=== PATIENT | female | born 1945 | race Caucasian/White ===

== ENCOUNTER 2016-12-04 20:45 | Inpatient (IN) | payer OTHER, BC ==
[~2016-12-04] VITALS: Ht 162.6 cm; Wt 98.9 kg
--- NOTE | ~2016-12-04 | S ---
[facility] [place] [address] [place] [address] SURGICAL PATH RPT PROCEDURE Name: DELMA VARGAS Room #: 427-P ADM IN M.R.#: [id number] Admission: 12/05/16 Date of : 47 Discharge: Report #: [id number] Path Case #: [id number] PATHOLOGY REPORT COLLECTION DATE: 12/05/2016 RECEIVED DATE: 12/05/2016 SUBMITTING PHYS: Dr. Dov Inman OTHER PHYS: Dr. Indio Nunez SPECIMEN(S) RECEIVED: A.Bx of gastritis * * * * * * * * * * * * FINAL DIAGNOSIS: Biopsy gastritis: - Moderate reactive gastropathy. - Negative for intestinal metaplasia or atrophy. - Negative for Helicobacter pylori. COMMENT: The Helicobacter pylori immunohistochemical stain performed on block A1 - negative. PATHOLOGIST: Ligia Enriquez M.D. REPORT ELECTRONICALLY SIGNED BY: Ligia Enriquez M.D. DATE/TIME: 12/09/2016 15:47 * * * * * * * * * * * * GROSS PATHOLOGY: Received in formalin labeled "Delma Vargas, biopsy of gastritis," are 4 segments of harding soft tissue measuring 1.0 x 0.8 x 0.4 cm in aggregate dimensions and ranging from 0.3 to 1.0 cm in maximum dimension. The specimen is submitted entirely in cassette A1. (KAH; 12/08/2016) CLINICAL HISTORY: None provided INITIAL CPT CODE(S): A; 52916, 76115 Professional services performed by [facility] at [facility] [address], [place] [address] [facility] [address] [place] [address] SURGICAL PATH RPT PROCEDURE Name: DELMA VARGAS Room #: 427-P ADM IN M.R.#: [id number] Admission: 12/05/16 Date of : 47 Discharge: Report #: [id number] Path Case #: [id number] Technical [facility] performed by [facility] at [address] [place] [address], [facility] [address] [address]. [facility] [address] [address] PHONE: [phone] DIRECTOR: Júnior Ortiz M.D. * * * END OF REPORT * * *
--- NOTE | ~2016-12-04 | EKG ---
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 : 1945 Requested By: Paige Rand Order Number: [id number] MD: Jeffrey Moscoso Measurements Intervals Brady Rate: 61 P: 41 FL: 149 QRS: -26 QRSD: 94 T: -1 QT: 448 QTc: 452 Interpretive Statements Sinus rhythm Abnormal R-wave progression, late transition Left ventricular hypertrophy Borderline T abnormalities, diffuse leads Baseline wander in lead(s) V1 Compared to ECG 01/27/2015 06:47:53 Atrial premature complex(es) no longer present Electronically Signed On 12-05-2016 8:09:55 CDT by Jeffrey Moscoso [email or web address] <ELECTRONICALLY SIGNED> By: Jeffrey Moscoso MD, [facility] 12/05/16808 47 47 Jeffrey Moscoso MD, [facility] /EPI
--- NOTE | ~2016-12-04 | P ---
[facility] [place] [address] [address] [place] [address] PROCEDURE REPORT Name: OSCAR BOLAND Room #: 427-P [facility]#: [id number] Admission: 12/05/16 Attend Phys: Indio Randolph MD Discharge: Date of : 47 Report #: [id number] THIS REPORT FOR: //name// CC: Indio Nunez MD BRIEF HISTORY: The patient is a 71-year-old woman with complaints of severe abdominal pain, which started last evening. She has also had some problems with intermittent dysphagia. She had a recent video swallow, which was negative. She was to see Dr. Avery Ruff as outpatient a week for consultation regarding her dysphagia. She presented to [facility] last evening with severe abdominal pain after eating her meal. PREOPERATIVE DIAGNOSIS: Severe abdominal pain. POSTOPERATIVE DIAGNOSES: 1. Moderately severe diffuse erythematous gastritis. 2. Retained material in the stomach, suggestive gastroparesis. 3. Small hiatus hernia. 4. Moderate Schatzki ring, GE junction. MEDICATIONS: Deep sedation with propofol per anesthesia. SPECIMEN: Biopsies of gastritis. ESTIMATED BLOOD LOSS: 3 mL. PROCEDURE: EGD with biopsy. FINDINGS: Prior to propofol sedation, procedure of upper endoscopy was discussed with the patient as well as potential risks and its complications. She indicates she understands and desires to proceed. DESCRIPTION OF PROCEDURE: With the patient in left lateral decubitus position, the Tangleri video endoscope was inserted in the cervical esophagus under direct vision without difficulty. Examination of this organ through its entire length revealed normal esophageal mucosa down the squamocolumnar junction. Squamocolumnar junction was inspected and noted to be within normal limits without evidence of esophagitis, Worley esophagus, mass or lesions. However, she was noted to have a moderate Schatzki ring at that level. The scope passed easily through the ring. The scope passed into a small hiatus hernia. The mucosal hernia was normal. Scope was advanced in the stomach, which was examined on end view as well as retroflexed views. She was noted to have retained solid material within the stomach. She is also noted to have a moderate amount of erythematous gastritis, most in the antrum. No ulcers were seen. No bleeding lesions were seen. Upon retroflexion, food was seen, but no [address] [address] PROCEDURE REPORT Name: KRYSTIANOSCAR Марина Room #: 427-P [facility] You#: [id number] Admission: 12/05/16 Attend Phys: Indio Randolph MD Discharge: Date of : 47 Report #: [id number] mass or lesions were seen within the limitations of the prep. The pylorus, duodenal bulb and postbulbar sweep were all inspected and noted to be within normal limits. The duodenal papilla was identified. There was clear yellow bile seen. At that point, the scope was slowly withdrawn and careful circumferential views confirmed the above findings. The patient tolerated the procedure well. Biopsies obtained of the gastritis. DISPOSITION: The patient presented with severe epigastric pain. Endoscopy does reveal retained material in the stomach. She may have gastroparesis, but I doubt that fully explains her symptoms at this point in time, especially with severe pain. She has had some dysphagia and she is found to have a ring, which was dilated. As far as her severe abdominal pain, I think we need to be concerned about the possibility of cholelithiasis, especially since her white count has jumped up to 15,000 today. I would recommend surgical consultation for further evaluation. In the meantime, continue PPI. Dilate as needed due to symptoms of dysphagia. <ELECTRONICALLY SIGNED> By: Dov Inman MD 12/06/16 1228 1329 [id number] Dov Inman MD /nt
--- NOTE | ~2016-12-04 | EKG ---
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 : 1945 Requested By: Carter Greenberg Order Number: [id number] MD: Celestino Leger Measurements Intervals Griffin Rate: 90 P: 47 MN: 142 QRS: -27 QRSD: 89 T: 147 QT: 384 QTc: 470 Interpretive Statements Sinus rhythm LVH with secondary repolarization abnormality Compared to ECG 12/04/2016 20:48:13 Early repolarization now present T-wave abnormality no longer present Electronically Signed On 12-07-2016 22:42:21 CDT by Celestino Leger [email or web address] <ELECTRONICALLY SIGNED> By: Celestino Leger MD 12/07/16 2242 1142 1142 Celestino Leger MD /REBECCA
--- NOTE | ~2016-12-04 | HC ---
[facility] [place] [address] [address] [place] [address] CONSULTATION Name: OSCAR BOLAND Room #: 427-P [facility]#: [id number] Admission: 12/05/16 Attend Phys: Indio Randolph MD Discharge: Date of : 47 Report #: [id number] THIS REPORT FOR: //name// CC: Indio Nunez DATE OF SERVICE: 12/06/2016 ATTENDING PHYSICIAN: Dr. Randolph. REASON FOR CONSULTATION: Right upper quadrant abdominal pain. HISTORY OF PRESENT ILLNESS: This is a 71-year-old female patient who was admitted to [facility] on 12/05/2016 with severe epigastric abdominal pain. She was seen in the [place] [facility] with these complaints as well as nausea and vomiting occurring postprandially. She has also had some difficulty with dysphagia. She was evaluated by GI and they elected to perform an EGD. This showed a Schatzki's ring, which was dilated. Thereafter, the patient developed worsening right upper quadrant abdominal pain. An abdominal ultrasound revealed multiple layering gallstones and sludge with no evidence for acute cholecystitis or biliary obstruction. The patient's CT scan showed no evidence for pancreatitis and again, same gallstones were seen within the gallbladder without evidence for acute cholecystitis. I have been asked to see the patient for her right upper quadrant abdominal pain. On my questioning, she appears quite uncomfortable, complaining of constant right upper quadrant abdominal pain. She reports fever, but no chills and denies any jaundice. She also denies nausea or vomiting at this time. Her laboratory studies show an increase in her white blood cell count yesterday before she underwent EGD; the prior day, her white blood cell count was normal. PAST MEDICAL HISTORY: Significant for hypertension, hyperlipidemia, gastroesophageal reflux disease, depression, anxiety, previous TIA and irritable bowel syndrome. PAST SURGICAL HISTORY: Hysterectomy. MEDICATIONS: Please see the hospital chart for dosing details). These include Prozac, Ambien, Cozaar, omeprazole, Vicodin, Requip, hydroxyzine, clonazepam, vitamin B complex, vitamin D3, glucosamine, CoQ10, and vitamin C. ALLERGIES: No known drug allergies. FAMILY HISTORY: Reviewed and noncontributory to this hospitalization. One of her grandmothers did have diabetes mellitus. SOCIAL HISTORY: The patient drinks alcohol socially. She quit smoking tobacco [address] [address] CONSULTATION Name: OSCAR BOLAND Room #: 427-P [facility]#: [id number] Admission: 12/05/16 Attend Phys: Indio Randolph MD Discharge: Date of : 47 Report #: [id number] 6 years ago and denies any use of illicit drugs. She is , but not accompanied by her at the present time. REVIEW OF SYSTEMS: As per history of present illness. In addition, GENERAL: The patient reports no unintentional weight loss. Denies chills. Reports fever. HEENT: Denies changes in taste, vision, hearing, or smell. Reports poor appetite. NECK: Denies masses. RESPIRATORY: Denies shortness of breath, asthma or COPD. CARDIOVASCULAR: Denies chest pain or palpitations. GASTROINTESTINAL: As per history of present illness. Also, denies any bright red blood per rectum. Has undergone a colonoscopy in the past, approximately 4 years ago. GENITOURINARY: Denies dysuria, urgency, increased urinary frequency or hematuria. Denies dark colored urine. NEUROLOGIC: Denies headaches, numbness or tingling. PSYCHIATRIC: Denies suicidal ideations; has a history of depression and anxiety. ENDOCRINE: Denies polydipsia, polyuria, heat or cold intolerance. HEMATOLOGIC: Denies easy bleeding or bruising. All other review of systems is negative. PHYSICAL EXAMINATION: VITAL SIGNS: Temperature 98.3, blood pressure 169/73, pulse 70 and respirations 18. GENERAL: This is a mildly obese 71-year-old female patient who appears uncomfortable. HEENT: Atraumatic, normocephalic with moist mucosal membranes. Oropharynx is clear. She has no scleral icterus. NECK: Supple. No appreciable lymphadenopathy. Trachea is midline. CHEST: Clear bilaterally. No crackles or wheezes. CARDIOVASCULAR: Regular rate and rhythm, S1, S2. ABDOMEN: Soft, but tender to palpation, greatest in the right upper quadrant. She has positive Riley sign and a faintly palpable mass in the right upper quadrant. No rebound or guarding and no appreciable hernias. Hysterectomy scar is well healed. GENITOURINARY: Normal external female genitalia. EXTREMITIES: No clubbing, cyanosis or edema. NEUROLOGIC: Cranial nerves 2-12 grossly intact. PSYCHIATRIC: Normal mood and affect. SKIN AND INTEGUMENTARY: No acute inflammatory changes, rashes, lesions, or jaundice is present. LABORATORY DATA: CBC shows a white blood cell count 15.1, hemoglobin 13.4, [address] [address] CONSULTATION Name: OSCAR BOLAND Room #: 427-P [facility]#: [id number] Admission: 12/05/16 Attend Phys: Indio Randolph MD Discharge: Date of : 47 Report #: [id number] hematocrit 40.00 and platelets 233 yesterday. A CBC has not been withdrawn for today. Electrolytes show sodium 135, potassium 4.0, chloride 101, CO2 of 27, BUN 7, creatinine 0.7, and glucose 132. Her liver function tests are within normal limits. RADIOLOGIC STUDIES: Ultrasound and CT findings are as noted above. IMPRESSION AND PLAN: This is a 71-year-old female patient with constant right upper quadrant abdominal pain and fever, worsening since she underwent an EGD with dilation of Schatzki's ring yesterday. She has gallstones, but no evidence for acute cholecystitis on the imaging studies. To better rule acute cholecystitis out, the patient would benefit from a PIPIDA scan. An ejection fraction is not necessary as the patient is requiring scheduled IV narcotic pain medication. We discussed the pathophysiology and natural history of biliary disease as well as the treatment alternatives and surgical options. Further recommendations will be made pending results of the PIPIDA scan. I have also ordered a CBC and comprehensive metabolic profile to be drawn today. I sincerely appreciate the opportunity to participate in the care of this patient and will leave further recommendations and orders in the electronic medical record as appropriate. <ELECTRONICALLY SIGNED> By: Donovan Treadwell MD, FACS 12/07/16 9726 1016 [id number] Donovan Treadwell MD, FACS /nt
--- NOTE | ~2016-12-04 | 2DMMODE ---
[facility] [address] [place] [address] 2 D/M-MODE ECHOCARDIOGRAM Name: BOLANDOSCAR Room #: 427-P [facility] IN ..#: [id number] Admission: 12/05/16 Attend Phys: Ailyn Huber Discharge: Date of : 47 Date of Service: 12/08/16 1223 Report #: [id number] THIS REPORT FOR: //name// APPROVED REPORT Study performed: 12/08/2016 11:14:02 EXAM: Comprehensive 2D, Doppler, and color-flow Echocardiogram Patient Location: Bedside Room #: [facility] Blood Pressure: 137/61 mmHg HR: 61 bpm Other Information Study Quality: Technically Limited Indications Hypertension/HDD 2D Dimensions LVEF(%): 62.54 (>50%) IVSd: 14.01 (7-11mm) LVOT Diam: 20.11 (18-24mm) LVDd: 45.35 mm PWd: 14.35 (7-11mm) Ascending Ao: 32.46 (22-36mm) LVDs: 30.09 (25-40mm) Aortic Root: 30.24 mm IVC: 22.00 mm Miller's LVEF: 62.54 % Aortic Valve AoV Peak Brody.: 1.54 m/s AO Peak Gr.: 9.49 mmHg LVOT Max P.78 mmHg LVOT Max V: 1.30 m/s IDRIS Vmax: 2.68 cm2 Mitral Valve E/A Ratio: 1.2 MV Decel. Time: 186.12 ms MV E Max Brody.: 0.97 m/s MV A Brody.: 0.83 m/s MV PHT: 53.97 ms IVRT: 92.27 ms [facility] [address] [place] [address] 2 D/M-MODE ECHOCARDIOGRAM Name: OSCAR BOLAND Марина Room #: 427-P [facility] IN [facility]#: [id number] Admission: 12/05/16 Attend Phys: Ailyn Huber Discharge: Date of : 47 Date of Service: 12/08/16 1223 Report #: [id number] Pulmonary Valve PV Peak Brody.: 1.11 m/s PV Peak Gr.: 4.97 mmHg Pulmonary Vein P Vein S: 67.1 m/s P Vein A: 37.05 m/s P Vein D: 38.2 m/s P Vein A Dur.: 110.7 msec Tricuspid Valve TR Peak Brody.: 3.13 m/s RAP Estimate: 10.00 mmHg TR Peak Gr.: 39.14 mmHg Left Ventricle The left ventricle is normal size. There is normal LV segmental wall motion. Mild concentric left ventricular hypertrophy. The left ventricular systolic function is normal. The left ventricular ejection fraction is within the normal range. LVEF is 60%. Grade II - pseudonormal filling dynamics. Right Ventricle The right ventricle appears normal size. The right ventricular systolic function appears normal. Atria The left atrium size is normal. The right atrium size is normal. Aortic Valve The aortic valve is normal in structure. No aortic regurgitation is present. There is no aortic valvular stenosis. Mitral Valve The mitral valve is normal in structure. Trace mitral regurgitation. No evidence of mitral valve stenosis. Tricuspid Valve The tricuspid valve is normal in structure. Mild tricuspid regurgitation. Pulmonic Valve The pulmonary valve is normal in structure. Trace to mild pulmonic regurgitation. Great Vessels The aortic root is normal in size. IVC is dilated and collapses >50% with inspiration. [facility] [address] [place] [address] 2 D/M-MODE ECHOCARDIOGRAM Name: OSCAR BOLAND Room #: 427-P [facility] IN .R.#: [id number] Admission: 12/05/16 Attend Phys: Ailyn Huber Discharge: Date of : 47 Date of Service: 12/08/16 1223 Report #: [id number] Pericardium There is no pericardial effusion. <Conclusion> The left ventricle is normal size. Mild concentric left ventricular hypertrophy. The left ventricular systolic function is normal. Grade II - pseudonormal filling dynamics. The right ventricle appears normal size. The left atrium size is normal. The aortic valve is normal in structure. Trace mitral regurgitation. Mild tricuspid regurgitation. <ELECTRONICALLY SIGNED> By: Merrill Deshpande MD 12/08/16 1223 22 22 Merrill Deshpande MD /INF
--- NOTE | ~2016-12-04 | HC ---
[facility] [place] [address] [place] [address] CONSULTATION Name: OSCAR BOLAND Room #: 427-P [facility]..#: [id number] Admission: 12/05/16 Attend Phys: Indio Randolph MD Discharge: Date of : 47 Report #: [id number] THIS REPORT FOR: //name// CC: Indio Nunez CARDIOLOGY CONSULTATION REASON FOR CONSULTATION: Intraoperative arrhythmia. HISTORY OF PRESENT ILLNESS: The patient is a 71-year-old with no known heart history, who was found to have acute colitis and today underwent drainage of her gallbladder, apparently they cannot remove it due to how inflamed it was. During the procedure, she had some brief runs of wide complex tachycardia lasting a few beats. I reviewed several of these episodes that they were able to record and it shows that she had frequent sinus rhythm with PACs and then some bursts of what looks like some atrial tachycardia with aberration. I saw her in the postoperative setting, she was without chest pain and she was denying any shortness of breath. She denies history of PND or orthopnea. REVIEW OF SYSTEMS: Unable to really obtain due to postop status and sedation. PAST MEDICAL HISTORY: GERD, hypertension, depression, TIA, irritable bowel, hyperlipidemia and anxiety. PAST SURGICAL HISTORY: Hysterectomy. ALLERGIES: PROCAINE. MEDICATIONS: Include Vitamin C, Coenzyme Q10, glucosamine, vitamin D3, hydroxyzine, clonazepam, vitamin B, Requip, Vicodin, Protonix, Prozac and losartan. SOCIAL HISTORY: She quit about 6 years ago and had a 50-pack smoking history. FAMILY HISTORY: Significant for father of lung cancer and some heart disease in her grandparents. PHYSICAL EXAMINATION: VITAL SIGNS: From this morning include temperature of 37.4, pulse 74, respiration 19, blood pressure 144/53, and sats 96%. She had a maximum temperature of 38.9, and while I was evaluating her, her heart rate was in the 80s, in sinus rhythm and her sats were 95% on 2 liters nasal cannula. GENERAL: She was somewhat lethargic and she was just out of surgery. HEENT: Sclerae anicteric. NECK: Supple, with no thyromegaly. HEART: Regular rate and rhythm with no murmurs, rubs, or gallops. [facility] [address] [place] [address] CONSULTATION Name: OSCAR BOLAND Room #: 427-[facility]#: [id number] Admission: 12/05/16 Attend Phys: Indio Randolph MD Discharge: Date of : 47 Report #: [id number] LUNGS: She does not have elevated jugular venous pressure. ABDOMEN: Nontender and I did note the drains that were in place. EXTREMITIES: There was no clubbing, cyanosis or edema. NEUROLOGIC: Cranial nerves were grossly intact. LABORATORY DATA: White count is 24, hemoglobin 12, and platelets are 185. Coags: INR 1.0. Chemistry: Sodium was 135, potassium 3.5, BUN 8, and creatinine 0.6. Troponins on admission were normal. Her proBNP on admission was 59. Her 12-lead EKG on admission showed sinus rhythm with no ischemic changes. Her EKG in the postoperative setting today demonstrate normal sinus rhythm with normal intervals and no ischemic changes. IMPRESSION: In summary, the patient is a 71-year-old with acute colitis, status post drain placement to had some brief runs of what appears to be atrial tachycardia in the postoperative setting. I have recommended that we started her on Toprol orally for heart rate control and hopefully to suppress some of these arrhythmias. I would also like to obtain an echocardiogram in the morning to further evaluate things. We will continue to follow. By: 1245 0104 Celestino Leger MD /nt
--- NOTE | ~2016-12-04 | O ---
[facility] [place] [address] [place] [address] OPERATIVE REPORT Name: OSCAR BOLAND Room #: 427-P [facility]#: [id number] Admission: 12/05/16 Attend Phys: Indio Randolph MD Discharge: Date of : 47 Report #: [id number] THIS REPORT FOR: //name// CC: Indio Nunez DATE OF SERVICE: 12/07/2016 SURGEON: Donovan Treadwell MD LANDSCAPE PAINTER: None. PREOPERATIVE DIAGNOSIS: Acute cholecystitis. POSTOPERATIVE DIAGNOSES: 1. Acute gangrenous cholecystitis. 2. Incarcerated incisional ventral hernia. PROCEDURES: 1. Diagnostic laparoscopy. 2. Laparoscopic placement of cholecystostomy tube (pigtail drain). 3. Laparoscopic primary repair of incarcerated incisional ventral hernia. ANESTHESIA: General endotracheal anesthesia and local anesthetic. ESTIMATED BLOOD LOSS: 5 mL. SPECIMEN: None. SPECIMENS: None appreciated. INDICATION FOR PROCEDURE: This is a 71-year-old female patient who has had difficulty with epigastric abdominal pain since this past , 3 days ago. After her admission through the emergency room, she underwent an ultrasound and CT scan which showed sludge/small gallstones with no evidence for acute cholecystitis (no gallbladder wall thickening, no pericholecystic fluid, etc.). The patient was seen by GI and was further evaluated with an EGD, which revealed a Schatzki's ring. The patient underwent dilatation. Food was seen in the patient's stomach as well. After the procedure, the patient's pain shifted to the right upper quadrant. It has been constant and worsening. Her white blood cell count has increased and she has mildly elevated liver function tests that were normal the previous day. The patient underwent a PIPIDA scan, which showed acute cholecystitis. There was no filling of the gallbladder, despite the patient being given morphine. She has continued worsening of her leukocytosis. Her pain has worsened today as well. The patient presents today for laparoscopic cholecystectomy with cholangiogram, possible cholecystostomy, [address] [address] OPERATIVE REPORT Name: OSCAR BOLAND [id number] Admission: 12/05/16 Attend Phys: Indio Randolph MD Discharge: Date of : 47 Report #: [id number] possible open. OPERATIVE FINDINGS: Upon entrance into the abdominal cavity, omental fat was plastered to the liver. Fibrinous exudate was seen at the junction between the liver and gallbladder. With the acute inflammatory changes, identification of structures was difficult. The dome of the gallbladder was able to be visualized and a small amount of the gallbladder was exposed, which revealed gangrenous changes. Decision was made to place a cholecystostomy tube. After placement of the tube, there was initially purulent drainage, which became more bilious. The patient was also seen to have an incarcerated incisional ventral hernia at the umbilicus from her previous hysterectomy. The incarcerated hernia contained a small amount of omentum as well as abdominal wall and preperitoneal fat. There was no bowel involvement. The incarcerated tissue was viable. The hernia repair was amenable to a sfrhud-cl-iypej primary repair with suture. No other significant intra-abdominal pathology was identified. At the conclusion of the operation, sponge, needle, and instrument counts were correct. DESCRIPTION OF PROCEDURE IN DETAIL: After the benefits and risks of the procedure were explained to the patient, which include but not limited to risks of bleeding, infection, possible need for conversion to an open procedure and possibility for cholecystostomy placement as well as risks of DVT, pulmonary embolus, postoperative pain, postoperative expectations, informed consent was obtained. The patient was identified in the preoperative holding area. She has been placed on scheduled Zosyn. The patient was taken to the operating room and she was placed in the supine position. SCDs were placed on the patient's bilateral lower extremities and pneumatic compression was initiated. The patient was then given IV sedation and she intubated without incident. A timeout was performed to identify the patient and procedure after prepping and draping her abdomen. Local anesthetic was infiltrated into the skin and subcutaneous tissue infraumbilically where a curvilinear incision was made with a 15 blade scalpel. The 11 mm Visiport was then placed intraperitoneally with a 0-degree angled laparoscope. Pneumoperitoneum was achieved with insufflation of carbon dioxide to 15 mmHg. A 30-degree angled laparoscope was then inserted. The patient was placed in the reverse Trendelenburg position, rotated to her left. A subxiphoid 5 mm and right subcostal 5 mm ports times 2 were placed under direct visualization after local anesthetic was infiltrated into the skin and subcutaneous tissue and appropriately sized incisions were made. Operative findings are as noted above. The omentum covering the gallbladder was tightly adherent in an acute fashion ending in an acute inflammatory fashion to the gallbladder. The omentum was lifted away revealing patchy areas of gangrene of the gallbladder. The surrounding tissue was acutely inflamed as well. Decision was made to place a cholecystostomy tube. The cholecystostomy was opened on the back table and [facility] [address] [place] [address] OPERATIVE REPORT Name: OSCAR BOLAND [id number] Admission: 12/05/16 Attend Phys: Indio Randolph MD Discharge: Date of : 47 Report #: [id number] prepared. Local anesthetic was infiltrated into the skin, subcutaneous tissue and the right subcostal area where a small skin jacquie was made. Sharp trocar for the cholecystostomy tube was advanced through the skin under direct visualization and directly into the gallbladder. The cholecystostomy tube was then advanced over the trocar until the forming suture was advanced beyond the gallbladder wall. The trocar was then withdrawn. The pigtail catheter was formed and the suture was locked down. A long catheter and 3-way stopcock were then connected and the gallbladder was drained with a 60 mL syringe, nearly 120 mL was withdrawn. The drain was connected to a bag. The abdominal cavity was then explored with findings as noted above. The incarcerated content within the hernia was reduced. A hrhxbx-lq-teevf 0 PDS suture was then placed through a separate location, cephalad to the port under direct visualization. The suture was then tied under direct visualization. The port was removed and an additional ntxzsh-yx-uhnlr 0 PDS suture was placed under direct visualization. Both sutures were placed with the Bradly-Abiola laparoscopic fascial closure device. This suture was tagged and the port was replaced. The abdominal cavity was then reentered. A 15 Greenlandic drain was then advanced into the abdominal cavity and brought out through the right lateral port site. The drain was secured to the skin with a 2-0 nylon suture. Intra-abdominally, the drain was positioned such that it would drain near the gallbladder as well as in the right perihepatic space. The 11 mm port was then removed and the suture was tied under direct visualization to ensure no incorporation of intra-abdominal content with the closure. The abdominal cavity was desufflated to the remaining ports. The ports were then removed. Interrupted subcuticular 4-0 Monocryl sutures and Dermabond were used to close the skin incisions. The cholecystostomy tube was secured to the skin with a StatLock type dressing. The patient tolerated the procedure well. She was awakened, extubated, and taken to the recovery room in stable condition with no apparent intraoperative complications. <ELECTRONICALLY SIGNED> By: Donovan Treadwell MD, FACS 12/07/16 [id number] Donovan Treadwell MD, FACS /nt
--- NOTE | ~2016-12-04 | H ---
[facility] [place] [place] [address] HISTORY AND PHYSICAL Name: OSCAR BOLAND Room #: 427-P [facility]..#: [id number] Admission: 12/05/16 Attend Phys: Indio Randolph MD Discharge: Date of : 47 Report #: [id number] THIS REPORT FOR: //name// CC: Indio Nunez DATE OF ADMISSION: 12/05/2016 ATTENDING PHYSICIAN: Dr. Randolph PRIMARY CARE PHYSICIAN: Rey Nunez M.D. in [place] CHIEF COMPLAINT: Chest pain and abdominal pain. HISTORY OF PRESENT ILLNESS: The patient is a 71-year-old female, who was feeling fine throughout the day yesterday. She ate some baked cod for dinner and shortly thereafter develops some burning type pain in her epigastric area that radiated up into her chest and through to her back. She has never had this type of pain before. She denies any recent exertional chest pain. She did have nausea that started vomiting multiple times at home. Her pain persisted and she came into the ER to be evaluated. She did try ____ and baby aspirin at home without relief. She does have a history of GERD that has never caused pain. She was given nitroglycerin, Protonix, morphine and Dilaudid and Reglan all in the ER, but she continued to have some vomiting and has been admitted for further evaluation. She is still experiencing the same pain. It really has never gone away since it started. She is having hard time lying flat or get uncomfortable because the pain is keeping awake. She denies any history of coronary artery disease. PAST MEDICAL HISTORY: GERD, hypertension, depression, TIA, IBS, hyperlipidemia, anxiety. PAST SURGICAL HISTORY: Hysterectomy. ALLERGIES: PROCAINE. HOME MEDICATIONS: Prozac 20 mg daily, Ambien at bedtime, losartan 100 mg daily, Protonix 20 mg daily, Vicodin 10/300 one tablet daily, Requip at bedtime, hydroxyzine 25 mg at bedtime. clonazepam 1 mg at bedtime, vitamin B daily, vitamin D3 daily, glucosamine daily, Coenzyme Q10 daily, and vitamin C daily. SOCIAL HISTORY: The patient is an ex-smoker having quit 6 years ago after [id number] history of smoking. She then used e-cigarettes. She denies any alcohol use. She lives at home with her spouse. She is retired. FAMILY HISTORY: Her father of lung cancer in his 80s. There was heart disease in multiple grandparents. [address] [address] HISTORY AND PHYSICAL Name: OSCAR BOLAND Room #: 427-P [facility]..#: [id number] Admission: 12/05/16 Attend Phys: Indio Randolph MD Discharge: Date of : 47 Report #: [id number] REVIEW OF SYSTEMS: Twelve point review of systems was reviewed with the patient, otherwise negative unless stated in the HPI. PHYSICAL EXAMINATION: GENERAL: The patient is an alert female in no acute distress. VITAL SIGNS: Temperature is 36.6, heart rate 67, respirations 16, blood pressure is 184/84, oxygen 100% on room air. HEENT: PERRLA. Sclerae is nonicteric. Oral mucosa is pink and moist. NECK: Supple, no JVD noted. CARDIOVASCULAR: Normal S1, S2. No murmurs, rubs or gallops. RESPIRATORY: Breath sounds are clear bilaterally. No wheezing or rhonchi. Breathing is nonlabored. ABDOMEN: Obese, but soft. She does have significant epigastric tenderness. Bowel sounds are positive. There is no guarding or rigidity. VASCULAR: No edema noted. Pedal pulses are 2+. NEUROLOGIC: The patient is alert and oriented x 3. Speech is clear. She is moving all extremities equally. No focal neuro deficits noted. PSYCHIATRIC: The patient is somewhat anxious, but cooperative. LABORATORY DATA AND DIAGNOSTICS: WBC 10.4, hemoglobin 13.4, platelets are 231, sodium 136, potassium 3.7, BUN 9, creatinine 0.6, glucose 111. LFTs are within normal limits. Cardiac enzymes are negative and likely is 109. INR is 1.0. Ultrasound of the abdomen showed multiple gallstones and gallbladder wall extending down in the gallbladder neck region. There are no current findings for acute cholecystitis or biliary obstruction. There is a large cyst involving the right kidney lower pole measuring [address] of the abdomen and pelvis shows multiple small cysts in the pancreatic head region which have a more chronic appearance. There is moderate material flowing the stomach. There is no acute abnormality. There is few faint gallstones within the gallbladder, but no signs of acute cholecystitis or obstruction. Liver showed moderate steatosis and there is moderate stool in the proximal colon. Chest x-ray showed mild increased bibasilar density suggesting atelectasis versus pneumonitis. ASSESSMENT AND PLAN: 1. Epigastric pain. Her pain does persist, this may be gallbladder versus gastritis, as the pain is reproducible. She did have gallstones on her CT and ultrasound. We will try GI cocktail and continue with PPI and antiemetics. We will consult GI for further recommendations. She has never had an EGD done. There is also moderate material within the stomach that may be gastroparesis. She may need to be evaluated with the gastric emptying study as well. We will await GI recommendations first. This may also be some atypical chest pain. We will check serial cardiac enzymes, the first of which was negative. She did take an aspirin today at home. 2. Hypertension. Blood pressure is stable, continue home medications and monitor. [facility] [address] [place] [address] HISTORY AND PHYSICAL Name: OSCAR BOLAND Марина Room #: 427-P [facility].#: [id number] Admission: 12/05/16 Attend Phys: Indio Randolph MD Discharge: Date of : 47 Report #: [id number] 3. Anxiety. Resume home medications. 4. Deep vein thrombosis prophylaxis is SCDs. We will continue to follow the patient closely throughout the hospitalization and make changes based on clinical status. <ELECTRONICALLY SIGNED> By: MARLIN Day 12/08/16 0604 [id number] 1004 MARLIN Day /cassie
[~2016-12-04 20:45] MED LIST: AMBIEN CR12.5 MG; ASPIR 8181 MG; PROZAC20 MG; SIMVASTATIN40 MG; TYLENOL325 MG PO
[2016-12-04 20:46] VITALS: BP 184/84
[2016-12-04 21:36] LABS: ABSOLUTE NEUTROPHILS 7.3 thou/uL (1.4-8.2); BASOPHILS 0.3 % (0.0-2.0); HEMATOCRIT 39.1 % (37.0-47.0); HEMOGLOBIN 13.4 gm/dL (12.0-15.0); LYMPHOCYTES 20.2 % (24.0-44.0); MANUAL DIFF NO; MCH 35.9 pg (26.0-34.0); MCHC 34.3 g/dL (28.0-37.0); MCV 104.4 fL (80.0-100.0); MONOCYTES 6.4 % (1.0-8.0); PLATELET COUNT 231 thou/uL (150-400); POLYS 70.1 % (36.0-66.0); RBC 3.74 mil/uL (4.20-5.00); RDW 14.4 % (10.5-14.5); WBC 10.4 thou/uL (4.0-11.0)
[2016-12-04 21:48] LABS: ANION GAP 13 mmol/L (7-16); BUN 9 mg/dL (7-18); CALCIUM 8.6 mg/dL (8.5-10.1); CHLORIDE 101 mmol/L (98-107); CO2 22 mmol/L (21-32); CREATININE 0.6 mg/dL (0.6-1.0); GLUCOSE 111 mg/dL (74-106); POTASSIUM 3.7 mmol/L (3.5-5.1); SODIUM 136 mmol/L (136-145)
[2016-12-04 21:53] LABS: APTT 25.4 Seconds (24.5-32.8); PROTIME 10.4 Seconds (9.3-11.4)
[2016-12-04 21:58] LABS: ALBUMIN 3.6 g/dL (3.4-5.0); ALKALINE PHOSPHATASE 62 U/L (46-116); NT-PRO BRAIN NAT PEPTIDE 59 pg/mL (<300); SGOT 30 U/L (15-37); SGPT 27 U/L (30-65); TOTAL BILIRUBIN 0.5 mg/dL (<0.1-1.0); TOTAL PROTEIN 7.6 g/dL (6.4-8.2); TROPONIN-I < 0.04 ng/mL (<0.04-0.07)
[2016-12-05] MEDS ORDERED: COZAAR 50 MG TA50 M2 (00:02)
[2016-12-05] MEDS ORDERED: OMEPRAZOLE 20 M20 M1 PO (00:03)
[2016-12-05] MEDS ORDERED: VICODIN HP 10-1 EAC1 (00:12)
[2016-12-05] MEDS ORDERED: HYDROXYZINE HCL25 M1 (00:13)
[2016-12-05] MEDS ORDERED: REQUIP0.5 MG (00:13)
[2016-12-05] MEDS ORDERED: CLONAZEPAM 1 MG1 M1 (00:13)
[2016-12-05] MEDS ORDERED: VITAMIN D2000 UNIT PO (00:14)
[2016-12-05] MEDS ORDERED: VITAMIN B-12500 MCG PO (00:14)
[2016-12-05] MEDS ORDERED: STRESS B1 EAC1 (00:14)
[2016-12-05] MEDS ORDERED: VITAMINC500 PO (00:15)
[2016-12-05] MEDS ORDERED: GLUCOSAMINE HC500 MG (00:15)
[2016-12-05] MEDS ORDERED: CO Q-1010 MG (00:15)
[2016-12-05 01:13] VITALS: BP 160/66
[2016-12-05 04:07] VITALS: BP 164/72
[2016-12-05 05:14] LABS: HEMOGLOBIN 13.4 gm/dL (12.0-15.0); MCH 35.1 pg (26.0-34.0); MCHC 33.5 g/dL (28.0-37.0); MCV 104.7 fL (80.0-100.0); RBC 3.82 mil/uL (4.20-5.00); RDW 14.4 % (10.5-14.5); WBC 15.1 thou/uL (4.0-11.0)
[2016-12-05 05:26] LABS: ALBUMIN 3.8 g/dL (3.4-5.0); CALCIUM 8.4 mg/dL (8.5-10.1); CREATININE 0.7 mg/dL (0.6-1.0); TOTAL BILIRUBIN 0.7 mg/dL (<0.1-1.0); TOTAL PROTEIN 7.9 g/dL (6.4-8.2)
[2016-12-05 07:47] VITALS: BP 161/82
[2016-12-05 16:03] VITALS: BP 163/60
[2016-12-05 20:00] VITALS: BP 155/59
[2016-12-06 04:00] VITALS: BP 152/83
[2016-12-06 07:50] VITALS: BP 169/73
[2016-12-06 10:48] LABS: HEMATOCRIT 39.1 % (37.0-47.0); MCH 35.3 pg (26.0-34.0); MCHC 33.4 g/dL (28.0-37.0); MCV 105.7 fL (80.0-100.0); RBC 3.7 mil/uL (4.20-5.00); RDW 14.4 % (10.5-14.5); WBC 20.1 thou/uL (4.0-11.0)
[2016-12-06 11:01] LABS: ALBUMIN 3.4 g/dL (3.4-5.0); CALCIUM 8.6 mg/dL (8.5-10.1); CREATININE 0.6 mg/dL (0.6-1.0); POTASSIUM 3.5 mmol/L (3.5-5.1); TOTAL BILIRUBIN 1.5 mg/dL (<0.1-1.0); TOTAL PROTEIN 7.8 g/dL (6.4-8.2)
[2016-12-06 16:23] VITALS: BP 173/77
[2016-12-06 20:00] VITALS: BP 184/90
[2016-12-07] VITALS (9 sets, daily range): BP systolic 121–177; BP diastolic 53–91
[2016-12-07 05:11] LABS: HEMOGLOBIN 12.5 gm/dL (12.0-15.0); MCH 34.8 pg (26.0-34.0); MCHC 32.9 g/dL (28.0-37.0); MCV 105.6 fL (80.0-100.0); PLATELET COUNT 185 thou/uL (150-400); RDW 14.3 % (10.5-14.5); WBC 24.1 thou/uL (4.0-11.0)
[2016-12-07 05:14] LABS: MANUAL DIFF YES
[2016-12-07 07:25] LABS: ABSOLUTE NEUTROPHILS 17.8 thou/uL (1.4-8.2); MACROCYTES 1+; PLATELET ESTIMATE NORMAL; TOTAL CELL COUNT 100
[2016-12-08 04:00] VITALS: BP 105/55
[2016-12-08 06:23] LABS: HEMATOCRIT 35.5 % (37.0-47.0); HEMOGLOBIN 11.7 gm/dL (12.0-15.0); MCH 35.2 pg (26.0-34.0); MCV 106.6 fL (80.0-100.0); PLATELET COUNT 182 thou/uL (150-400); RBC 3.33 mil/uL (4.20-5.00); RDW 14.2 % (10.5-14.5); WBC 17.1 thou/uL (4.0-11.0)
[2016-12-08 07:08] LABS: MANUAL DIFF YES
[2016-12-08 07:17] LABS: ALBUMIN 2.4 g/dL (3.4-5.0); CREATININE 0.6 mg/dL (0.6-1.0); TOTAL BILIRUBIN 1.5 mg/dL (<0.1-1.0)
[2016-12-08 07:22] LABS: POTASSIUM 2.8 mmol/L (3.5-5.1)
[2016-12-08 08:16] VITALS: BP 130/61
[2016-12-08 08:40] LABS: ABSOLUTE NEUTROPHILS 14.2 thou/uL (1.4-8.2); MACROCYTES 2+; TOTAL CELL COUNT 100
[2016-12-08 15:33] VITALS: BP 128/57
[2016-12-08 20:00] VITALS: BP 152/62
[2016-12-09 04:30] VITALS: BP 149/58
[2016-12-09 05:41] LABS: CALCIUM 8.1 mg/dL (8.5-10.1); CREATININE 0.6 mg/dL (0.6-1.0); HEMATOCRIT 34.7 % (37.0-47.0); HEMOGLOBIN 11.6 gm/dL (12.0-15.0); MCH 35.3 pg (26.0-34.0); MCHC 33.3 g/dL (28.0-37.0); MCV 105.8 fL (80.0-100.0); RBC 3.28 mil/uL (4.20-5.00); RDW 14.4 % (10.5-14.5); WBC 12.7 thou/uL (4.0-11.0)
[2016-12-09 06:04] LABS: POTASSIUM 2.7 mmol/L (3.5-5.1)
[2016-12-09 07:16] VITALS: BP 139/57
[2016-12-09] MEDS ORDERED: METOPROLOL SUCC25 M1 PO (09:40)
[2016-12-09] MEDS ORDERED: K-DUR 20 MEQ T20 MEQ PO (09:41)
[2016-12-09] MEDS ORDERED: HYDROCODON-ACE1 EAC7 PO (09:41)
[2016-12-09] MEDS ORDERED: COLACE100 MG PO (09:42)
[2016-12-09] MEDS ORDERED: AUGMENTIN 875875 MG PO (09:43)
[2016-12-09 12:27] VITALS: BP 139/57
[2016-12-09 13:08] VITALS: BP 139/57
[2016-12-09 15:41] VITALS: BP 157/63
[2016-12-09 17:57] VITALS: BP 139/57
== END 2016-12-09 17:51 | disposition home health service (06) | DRG 853 ==
LOC: ER 20:45 → 4E 12-05 00:30 → EROBS 12-05 00:30 → 4E 12-05 01:15
PROVIDERS: Emergency Medicine; Hospitalist; Nurse Practitioner Acute Care; Surgery
PROC: 0DB68ZX Excision of Stomach, Via Natural or Artificial Opening Endoscopic, Diagnostic (ICD-10-PCS; principal; 2016-12-05)
PROC: 0WQF4ZZ Repair Abdominal Wall, Percutaneous Endoscopic Approach (ICD-10-PCS; 2016-12-07)
PROC: 0F9440Z Drainage of Gallbladder with Drainage Device, Percutaneous Endoscopic Approach (ICD-10-PCS; 2016-12-07)
DX: A41.9 Sepsis, unspecified organism (principal); E43 Unspecified severe protein-calorie malnutrition; K81.0 Acute cholecystitis; K43.0 Incisional hernia with obstruction, without gangrene; I47.1 Supraventricular tachycardia; K29.70 Gastritis, unspecified, without bleeding; K44.9 Diaphragmatic hernia without obstruction or gangrene; K22.2 Esophageal obstruction; I10 Essential (primary) hypertension; F32.9 Major depressive disorder, single episode, unspecified; E78.5 Hyperlipidemia, unspecified; K21.9 Gastro-esophageal reflux disease without esophagitis; F41.9 Anxiety disorder, unspecified; K58.9 Irritable bowel syndrome, unspecified; K59.00 Constipation, unspecified; D17.5 Benign lipomatous neoplasm of intra-abdominal organs; D75.89 Other specified diseases of blood and blood-forming organs; E87.6 Hypokalemia; E66.9 Obesity, unspecified; Z68.37 Body mass index [BMI] 37.0-37.9, adult; Z86.73 Personal history of transient ischemic attack (TIA), and cerebral infarction without residual deficits; Z87.891 Personal history of nicotine dependence; Z90.710 Acquired absence of both cervix and uterus; Z88.8 Allergy status to other drugs, medicaments and biological substances; Z83.3 Family history of diabetes mellitus; Z80.1 Family history of malignant neoplasm of trachea, bronchus and lung; Z82.49 Family history of ischemic heart disease and other diseases of the circulatory system
CPT/HCPCS: 10783; 50101; 50249; 50411; 50555; 50558; 50847; 50962; 51489; 51975; 52265; 53307; 54022; 54118; 55245; 55317; 56462; 56525; 56526; 56970; 62110; 62900; 70005

== ENCOUNTER → 2016-12-30 | Outpatient (CLI) | payer OTHER, BC ==
[~2016-12-30] VITALS: Ht 162.6 cm; Wt 93.4 kg
[~2016-12-30] MED LIST changes: +AUGMENTIN 875875 MG PO; +CLONAZEPAM 1 MG1 M1; +CO Q-1010 MG; +COLACE100 MG PO; +COZAAR 50 MG TA50 M2; +GLUCOSAMINE HC500 MG; +HYDROCODON-ACE1 EAC7 PO; +HYDROXYZINE HCL25 M1; +K-DUR 20 MEQ T20 MEQ PO; +METOPROLOL SUCC25 M1 PO; +NORCO 10-325 T1 EACH PO; +OMEPRAZOLE 20 M20 M1 PO; +PROZAC20 MG PO; +REQUIP0.5 MG; +STRESS B1 EAC1; +TOPROL XL25 MG PO; +VICODIN HP 10-1 EAC1; +VITAMIN B-12500 MCG PO; +VITAMIN D2000 UNIT PO; +VITAMINC500 PO
[2016-12-30 09:29] VITALS: BP 113/56
[2016-12-30 09:49] LABS: HEMATOCRIT 37.7 % (37.0-47.0); HEMOGLOBIN 12.7 gm/dL (12.0-15.0); MCH 35.8 pg (26.0-34.0); MCHC 33.8 g/dL (28.0-37.0); RBC 3.55 mil/uL (4.20-5.00); RDW 13.9 % (10.5-14.5); WBC 5.8 thou/uL (4.0-11.0)
[2016-12-30 09:57] LABS: CALCIUM 8.9 mg/dL (8.5-10.1); CREATININE 0.6 mg/dL (0.6-1.0); POTASSIUM 3.8 mmol/L (3.5-5.1)
[2016-12-30 10:14] LABS: APTT 25.9 Seconds (24.5-32.8); PROTIME 10.7 Seconds (9.3-11.4)
== END ==
LOC: SPEC 08:52
PROVIDERS: Radiology Vascular & Interventional Radiology
DX: K81.0 Acute cholecystitis (principal); I10 Essential (primary) hypertension; F32.89 Other specified depressive episodes; K21.9 Gastro-esophageal reflux disease without esophagitis; E78.4 Other hyperlipidemia

== ENCOUNTER → 2017-02-04 | Outpatient (CLI) | payer OTHER, BC ==
[~2017-02-04] VITALS: Ht 162.6 cm; Wt 93.4 kg
[~2017-02-04] MED LIST changes: -AMBIEN CR12.5 MG; +AMBIEN CR12.5 MG PO; -CLONAZEPAM 1 MG1 M1; +CLONAZEPAM 1 MG1 M1 PO; -COZAAR 50 MG TA50 M2; +COZAAR 50 MG TA50 M2 PO; -GLUCOSAMINE HC500 MG; +GLUCOSAMINE HC500 MG PO; -HYDROXYZINE HCL25 M1; +HYDROXYZINE HCL25 M1 PO; -REQUIP0.5 MG; +REQUIP0.5 MG PO
[2017-02-04 07:40] VITALS: BP 124/63
== END ==
LOC: SPEC 07:16
DX: Z43.4 Encounter for attention to other artificial openings of digestive tract (principal); Z88.8 Allergy status to other drugs, medicaments and biological substances; I10 Essential (primary) hypertension; F32.9 Major depressive disorder, single episode, unspecified; Z90.710 Acquired absence of both cervix and uterus; I49.9 Cardiac arrhythmia, unspecified; J44.9 Chronic obstructive pulmonary disease, unspecified; K21.9 Gastro-esophageal reflux disease without esophagitis; E66.9 Obesity, unspecified; Z86.73 Personal history of transient ischemic attack (TIA), and cerebral infarction without residual deficits; K58.8 Other irritable bowel syndrome

== ENCOUNTER 2017-02-18 05:45 | Observation (INO) | payer OTHER, BC ==
[2017-02-18] VITALS (8 sets, daily range): BP systolic 121–155; BP diastolic 50–76
[~2017-02-18] VITALS: Ht 162.6 cm; Wt 95.3 kg
--- NOTE | ~2017-02-18 | S ---
[facility] [place] [address] [place] [address] SURGICAL PATH RPT PROCEDURE Name: DELMA VARGAS Room #: 542-P JIM You#: [id number] Admission: 02/18/17 Date of : 47 Discharge: 02/19/17 Report #: [id number] Path Case #: [id number] PATHOLOGY REPORT COLLECTION DATE: 02/18/2017 RECEIVED DATE: 02/18/2017 SUBMITTING PHYS: Dr. Donovan Treadwell OTHER PHYS: Dr. Rey Nunez SPECIMEN(S) RECEIVED: A.Gallbladder * * * * * * * * * * * * FINAL DIAGNOSIS: Gallbladder, cholecystectomy: - Moderate chronic cholecystitis. - Cholelithiasis. - Incidental lymph node. PATHOLOGIST: Ligia Enriquez M.D. REPORT ELECTRONICALLY SIGNED BY: Ligia Enriquez M.D. DATE/TIME: 02/20/2017 14:28 * * * * * * * * * * * * GROSS PATHOLOGY: Received in formalin labeled "Delma Vargas, gallbladder," is a 6.5 x 3.2 x 2.8 cm, previously opened and torn gallbladder with a moderate amount of attached adipose tissue and pink-harding to red brown ragged serosal surfaces. Opening the gallbladder reveals harding to brown velvety mucosa and an average wall thickness of 0.1 cm. Calculi are present, red-brown to black, friable and skin range from 0.3 to 0.9 cm in maximum dimensions. No masses are noted grossly. Evening Sitter sections from the body and fundus are submitted along with the proximal margin in cassette A1. (SHASHANK; 02/19/2017) CLINICAL HISTORY: Cholelithiasis INITIAL CPT CODE(S): A; 28416 Professional services performed by [facility] at [facility] [address] , [place] [address] [facility] [address] [place] [address] SURGICAL PATH RPT PROCEDURE Name: DELMA VARGAS CHONG Room #: 542-P JIM You#: [id number] Admission: 02/18/17 Date of : 47 Discharge: 02/19/17 Report #: [id number] Path Case #: [id number] Technical services performed by [facility] at [address] [place] [address], [place] [address]. [place] [address] PHONE: [phone] DIRECTOR: Júnior Ortiz M.D. * * * END OF REPORT * * *
[~2017-02-18 05:45] MED LIST changes: +VENTOLIN HFA 1818 GM INH
[2017-02-18] MEDS ORDERED: HYDROCODONE-AP1 EAC6 PO (14:02)
[2017-02-18] MEDS ORDERED: PERI-COLACE TA1 EACH PO (14:02)
[2017-02-18] MEDS ORDERED: HYDROCODONE-APA1 TA1 PO (14:04)
[2017-02-18 18:01] LABS: CREATININE 0.9 mg/dL (0.6-1.0); POTASSIUM 4.2 mmol/L (3.5-5.1)
[2017-02-19 03:44] VITALS: BP 129/42
[2017-02-19 05:30] LABS: HEMATOCRIT 37.7 % (37.0-47.0); HEMOGLOBIN 12.6 gm/dL (12.0-15.0); MCHC 33.5 g/dL (28.0-37.0); MCV 104.7 fL (80.0-100.0); RBC 3.6 mil/uL (4.20-5.00); RDW 14.1 % (10.5-14.5); WBC 13.3 thou/uL (4.0-11.0)
[2017-02-19 06:53] VITALS: BP 117/54
[2017-02-19] MEDS ORDERED: ZOFRAN ODT4 MG DISSOLVE (10:25)
[2017-02-19 12:30] VITALS: BP 129/63
== END 2017-02-19 13:45 | disposition home health service (06) ==
LOC: TBA 05:45 → OR 05:45 → TBA 16:09 → 5S 16:35
PROVIDERS: Surgery
DX: K81.0 Acute cholecystitis (principal); K82.9 Disease of gallbladder, unspecified; M79.89 Other specified soft tissue disorders; I49.8 Other specified cardiac arrhythmias; R11.10 Vomiting, unspecified
CPT/HCPCS: 50010; 50101; 50249; 50411; 50555; 50558; 50962; 51489; 51975; 52265; 52266; 53307; 54022; 54118; 55245; 55317; 56462; 56525; 56526; 62110; 62900; 70005